=== PATIENT | female | born 1945 | race African-American/Black ===

== ENCOUNTER 2025-02-03 18:39 | Emergency (ER) | payer MEDICARE, OTHER ==
[~2025-02-03] VITALS: Ht 160 cm; Wt 60.9 kg
--- NOTE | 2025-02-03 19:49 | ED.PDOC ---
Nithya. trauma (HPI) HPI Comments 79-year-old female who came to ER for fall injury. Patient was putting decorations and the [place] tree, she stood up on the stool, she lost her balance and she fell on her outstretched left arm. Noted pain on her left shoulder and left arm. No other injuries noted. No Head trauma or loss of consciousness. 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: Denies all 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 Hx Family History Family History: Reviewed,noncontributory to illness Social History Smoker: Non-Smoker Alcohol: Denies ETOH Use Drugs: Denies Drug Use Lives In: Home Constitutional: denies: chills, diaphoresis, fatigue, fever, malaise, sweats, weakness, others EENTM: denies: blurred vision, double vision, ear bleeding, ear discharge, ear drainage, ear pain, ear ringing, eye pain, eye redness, hearing loss, mouth pain, mouth swelling, nasal discharge, nose bleeding, nose congestion, nose pain, photophobia, tearing, throat pain, throat swelling, voice changes, others Respiratory: denies: cough, hemoptysis, orthopnea, SOB at rest, shortness of breath, SOB with excertion, stridor, wheezing, others Cardiovascular: denies: chest pain, dizzy spells, diaphoresis, Dyspnea on exertion, edema, irregular heart beat, left arm pain, lightheadedness, palpitations, PND, syncope, others Gastrointestinal: denies: abdomen distended, abdominal pain, blood streaked bowels, constipated, diarrhea, dysphagia, difficulty swallowing, hematemesis, melena, nausea, poor appetite, poor fluid intake, rectal bleeding, rectal pain, vomiting, others Genitourinary: denies: abnormal vagina bleeding, burning, dyspareunia, dysuria, flank pain, frequency, hematuria, incontinence, pain, , vagina disc harge, urgency, others Neurological: denies: dizziness, fainting, headache, left sided numbness, left sided weakness, numbness, paresthesia, pre-existing deficit, right sided numbness, right sided weakness, seizure, speech problems, tingling, tremors, weakness, others Musculoskeletal: reports: joint pain (Left shoulder), others (Upper arm left); denies: back pain, gout, joint swelling, muscle pain, muscle stiffness, neck p ain Integumetry: denies: bruises, change in color, change in hair/nails, dryness, laceration, lesions, lumps, rash, wounds, others Allergic/Immunocompromised: denies: Difficulty Healing, Frequent Infections, Hives, Itching, others Hematologic/Lymphatic: denies: anemia, blood clots, easy bleeding, easy bruising, swollen glands, others Endocrine: denies: excessive hunger, excessive sweating, excessive thirst, excessive urination, flushing, intolerance to cold, intolerance to heat, unexplained weight gain, unexplained weight loss, others Psychiatric: denies: anxiety, bipolar disorder, depression, hopeless, panic disorder, schizophrenia, sleepless, suicidal, others Physical Exam General Appearance: No Apparent Distress, Normal HEENT: Normal ENT Inspection, Pharynx Normal, TMs Normal Neck: Full Range of Motion, Non-Tender, Normal, Normal Inspection Respiratory: Chest Non-Tender, Lungs Clear, No Accessory Muscle Use, No Respiratory Distress, Normal Breath Sounds Cardiovascular: No Edema, No JVD, No Murmur, No Gallop, Normal Peripheral Pul ses, Regular Rate/Rhythm Breast Exam: Deferred Gastrointestinal: No Organomegaly, Non Tender, No Pulsatile Mass, Normal Bowel Sounds, Soft Genitalia: Deferred Pelvic: Deferred Rectal: Deferred Extremities: No calf tenderness, Normal capillary refill, Normal inspection, Normal range of motion, Non-tender, No pedal edema Musculoskeletal : Apperance: Normal Neurologic: Alert, harness fitter II-XII nml as Tested, No Motor Deficits, Normal Affect, Normal Mood, No Sensory Deficits Cerebellar Function: Normal Reflexes: Normal Skin: Dry, Normal Color, Warm Lymphatic: No Adenopathy Was a procedure done? Was a procedure done?: No Differential Diagnosis Multiple Trauma: Fractures, Spine Injury X-Ray, Labs, Meds, VS Vital Signs Date Time Temp Pulse Resp B/P (MAP) Pulse Ox O2 Delivery O2 Flow Rate FiO2 02/03/25 22:44 168/80 (109) 02/03/25 21:52 97.9 89 18 189/115 (139) 99 97.9 02/03/25 18:41 97.2 85 16 197/96 100 97.2 Current Medications Medications (Trade) Dose Ordered Sig/Constance Route Start Time Stop Time Status Last Admin Acetaminophen/ Hydrocodone Bitart ([place] 5/325MG Tab) 1 tab ONCE ONCE PO 02/03/25 19:15 02/03/25 19:16 DC 02/03/25 22:49 PROCEDURE(s): LSHD2 - L SHOULDER 2+ VIEW XRAY REASON: fall injury ORDER NUMBER(s): [id number], ACCESSION NUMBER(s): [id number] CLINICAL INDICATION: fall injury TECHNIQUE: 3 radiographic views of the left shoulder were obtained. COMPARISON: None FINDINGS/IMPRESSION: There is no dislocation. There is a fracture through the proximal humerus with between 6 and 10mm displacement. Fracture is involving the surgical neck or slightly distal to that location. EDURE(s): LHUM - L HUMERUS XRAY REASON: fall injury ORDER NUMBER(s): [id number], ACCESSION NUMBER(s): [id number] CLINICAL INDICATION: fall injury TECHNIQUE: 2 radiographic views of the left humerus were obtained. COMPARISON: None FINDINGS/IMPRESSION: There is acute mildly displaced fracture through the surgical neck of the humerus. Diffuse demineralization. EDURE(s): LFOR - L FOREARM XRAY REASON: fall inj ORDER NUMBER(s): [id number], ACCESSION NUMBER(s): [id number] CLINICAL INDICATION: fall inj TECHNIQUE: 2 radiographic views of the left forearm were obtained. COMPARISON: None FINDINGS/IMPRESSION: No fractures no dislocations. No radiopaque foreign bodies. EDURE(s): LHAN2 - L HAND 2V XRAY REASON: fall injury ORDER NUMBER(s): [id number], ACCESSION NUMBER(s): [id number] CLINICAL INDICATION: fall injury TECHNIQUE: 2 radiographic views of the left hand were obtained. COMPARISON: None FINDINGS/IMPRESSION: No fractures or dislocations. No radiopaque foreign bodies. Time of 1ST Reevaluation: 19:47 Reevaluation 1ST: Unchanged Patient Education/Counseling: Diagnosis, Treatment Family Education/Counseling: No Family Present Departure 1 Departure Time of Disposition: 21:40 Impression: Primary Impression: Closed fracture of neck of left humerus Disposition: 01 HOME / SELF CARE / HOMELESS Condition: Stable e-Prescriptions Gabapentin (Once-Daily) (Gabapentin) 300 Mg Tab 300 MG PO Q6HP PRN, #60 TAB Prov: JILLIAN MALDONADO MD 02/03/25 Hydrocodone-Acetaminophen (Hydrocodone Bitartrate/AC 5-325 mg) 1 Tab Tab 1 TAB PO Q6HP PRN, #20 TAB Prov: JILLIAN MALDONADO MD 02/03/25 Discharged With: Self Critical Care Note Critical Care Time?: No Stability Stability form required: No Heart Score Heart Score: Heart Score Response (Comments) Value History N/A 0 EKG N/A 0 Age N/A 0 Risk Factors N/A 0 Troponin N/A 0 Total 0 I personally scribed for JILLIAN MALDONADO MD ([email or web address]) on 02/03/25 at 19:49. Electronically submitted by Yoseph Rivera ([email or web address]). I personally scribed for JILLIAN MALDONADO MD ([email or web address]) on 02/03/25 at 20:44. Electronically submitted by Yoseph Rivera ([email or web address]). JILLIAN MALDONADO MD Feb 03, 2025 19:49
--- NOTE | 2025-02-03 19:52 | DVH ---
CLINICAL INDICATION: fall injury TECHNIQUE: 3 radiographic views of the left shoulder were obtained. COMPARISON: None FINDINGS/IMPRESSION: There is no dislocation. There is a fracture through the proximal humerus with between 6 and 10mm displacement. Fracture is involving the surgical neck or slightly distal to that location.
--- NOTE | 2025-02-03 19:52 | DVH ---
CLINICAL INDICATION: fall injury TECHNIQUE: 2 radiographic views of the left humerus were obtained. COMPARISON: None FINDINGS/IMPRESSION: There is acute mildly displaced fracture through the surgical neck of the humerus. Diffuse demineralization.
--- NOTE | 2025-02-03 20:02 | DVH ---
CLINICAL INDICATION: fall injury TECHNIQUE: 2 radiographic views of the left hand were obtained. COMPARISON: None FINDINGS/IMPRESSION: No fractures or dislocations. No radiopaque foreign bodies.
--- NOTE | 2025-02-03 20:03 | DVH ---
CLINICAL INDICATION: fall inj TECHNIQUE: 2 radiographic views of the left forearm were obtained. COMPARISON: None FINDINGS/IMPRESSION: No fractures no dislocations. No radiopaque foreign bodies.
[2025-02-03] MEDS ORDERED: GABA300T4 PO (20:55)
[2025-02-03] MEDS ORDERED: HYDR-4902 PO (20:55)
[2025-02-03 21:52] VITALS: PULSE 89; RESP 18; TEMP 97.9; O2SAT 99
[2025-02-03 22:44] VITALS: BP 168/80
[2025-02-03] MEDS: HYDROcodone-ACET 5/325MG TAB PO ONE (22:49)
== END 2025-02-03 22:53 | disposition home or self-care (01) ==
LOC: ER 18:39
DX: S42.212A Unspecified displaced fracture of surgical neck of left humerus, initial encounter for closed fracture (principal); W01.0XXA Fall on same level from slipping, tripping and stumbling without subsequent striking against object, initial encounter; Y93.89 Activity, other specified; Y92.89 Other specified places as the place of occurrence of the external cause; Y99.8 Other external cause status
CPT/HCPCS: 73030; 73060; 73090; 73120